=== PATIENT | male | born 1990 | race Caucasian/White ===

== ENCOUNTER 2018-11-08 15:27 | Outpatient (RCR) | payer OTHER ==
[~2018-11-08 15:27] MED LIST: LORTAB 7.5/5001 TAB PO
== END 2019-02-04 | disposition still patient (30) ==
LOC: WSOH
DX: S61.011A Laceration without foreign body of right thumb without damage to nail, initial encounter (principal); W31.2XXA Contact with powered woodworking and forming machines, initial encounter; Y92.59 Other trade areas as the place of occurrence of the external cause; Y99.0 Civilian activity done for income or pay; Z23 Encounter for immunization; F17.210 Nicotine dependence, cigarettes, uncomplicated